=== PATIENT | female | born 1950 | race Caucasian/White ===

== ENCOUNTER 2016-08-22 07:39 | Emergency (ER) | payer OTHER ==
[~2016-08-22] VITALS: Ht 157.5 cm; Wt 71.5 kg
[2016-08-22 07:42] VITALS: Ht 157.5 cm; Wt 71.5 kg
--- NOTE | 2016-08-22 08:30 | ERD ---
ER Documentation Chief Complaint Date/Time DATE: 08/22/16 TIME: 08:21 Chief Complaint needs liainopril, metformin & hctz refil, bs 200 @ home HPI 66-year-old female presented ED complaining of "blood sugars too high". Patient has history of diabetes, hypertension, and hyper lipidemia. She is currently taking Metformin 850 mg twice daily, lisinopril, hydrochlorothiazide, and atorvastatin. The medication is prescribed to her by her PCP. Patient stated that her blood sugar this morning at home was 200. She is concerned about a number is being too high. Denies abdominal pain, nausea, vomiting. Denies polyuria, polydipsia or polyphagia. Denies headache or chest pain. Denies shortness of breath. ROS All systems reviewed and are negative except as per history of present illness. Allergies Allergies: Coded Allergies: codeine (Verified Allergy, Unknown, 03/14/14) PMhx/Soc Hx Miscellaneous Medical Probl: Yes (DM) Hx Alcohol Use: No Hx Substance Use: No Hx Tobacco Use: No Smoking Status: Never smoker Physical Exam Vitals Vital Signs Date Time Temp Pulse Resp B/P Pulse Ox O2 Delivery O2 Flow Rate FiO2 08/22/16 07:42 97.9 60 20 147/70 100 Physical Exam General: Well-developed, well-nourished, conscious and coherent, in no distress Skin: Warm and dry without rash, good texture and turgor Head: Normocephalic without evidence of trauma Eyes: Sclera and conjunctivae normal; pupils equal, round, and reactive to light; extraocular movements are intact Neck: Supple without meningismus or adenopathy. Carotids are equal. Trachea midline. No bruits or JVD Chest: Normal AP diameter. Good expansion without retractions. Nontender. Lungs are clear to auscultate bilaterally with good tidal volume Heart: Regular rate and rhythm. No murmur, rub, or gallops heard Abdomen: Soft and nontender without masses, guarding, or rebound. Bowel sounds are active. No hepatosplenomegaly Extremities: Full range of motion. Good strength bilaterally. No clubbing, cyanosis, or edema. Peripheral pulses are intact. Sensation intact Neuro: Alert and oriented 4, GCS 15. Cranial nerves grossly intact. Motor and sensory exams nonfocal. Moves all extremities. Speech clear. Gait normal Results 24 hrs Laboratory Tests Test 08/22/16 07:49 Bedside Glucose 221mg/dL Procedures/MDM Well-appearing 66-year-old female with history of hypertension diabetes and hyperlipidemia presented to ED with elevated blood glucose. Accu-Chek in the ED show her blood glucose at 221. Patient asymptomatic, I doubt she has DKA or HHS. I advised patient that while her blood glucose level is higher than the ideal range, it is not an emergency. She will need to follow-up by her PCP for medication adjustment to better control her diabetes. She still has all her medications, no refills needed. Patient appears well, stable for discharge and outpatient management. Medical decision making shared with patient and family. Education provided to patient and family. Patient and family expressed understanding of the plan. Medications on discharge: None. Follow-up: Primary care provider in 2-3 days or return to ED if worse. Departure Diagnosis: Primary Impression: Hyperglycemia due to type 2 diabetes mellitus Diabetes mellitus termite control service representative insulin use: without termite control service representative use Qualified Code : E11.65 - Type 2 diabetes mellitus with hyperglycemia, without long-term current use of insulin Condition: Good Patient Instructions: What Is Type 2 Diabetes?, Diabetes: Activity Tips, Diabetes: Understanding Carbohydrates, Fats, and Protein, Taking Medication for Diabetes Additional Instructions: Llame al doctor MAANA y omayra alexys RASHAWN PARA DENTRO DE 2-3 MORALES.Dgale a la secretaria que nosotros le instruimos hacer esta rashawn.Avise o llame si singh condicin se empeora antes de la rashawn. Regresa aqui si peor o no mejor. SISSY AMARO NP Aug 22, 2016 08:29
== END 2016-08-22 08:21 | disposition home or self-care (01) ==
LOC: FTE 07:39
DX: E11.65 Type 2 diabetes mellitus with hyperglycemia (principal); I10 Essential (primary) hypertension
CPT/HCPCS: 82962; 99281

== ENCOUNTER 2016-10-30 08:40 | Emergency (ER) | payer OTHER ==
[~2016-10-30] VITALS: Ht 165.1 cm; Wt 72.5 kg
[2016-10-30 08:43] VITALS: Ht 165.1 cm; Wt 72.5 kg
--- NOTE | 2016-10-30 09:33 | ERD ---
ER Documentation Chief Complaint Date/Time DATE: 10/30/16 TIME: 09:30 Chief Complaint PAIN WITH URINATION X3 DAYS HPI 66-year-old female presents with 1 day history of suprapubic pressure-like pain , urinary frequency and urgency. Pain is localized to the suprapubic region, she states that there is some pain when she urinates but is not able to describe the type of pain. Patient denies hematuria, flank pain. Patient denies fevers or chills, nausea or vomiting. ROS All systems reviewed and are negative except as per history of present illness. Medications Home Meds Active Scripts Nitrofurantoin Monohyd Macrocr* (Macrobid*) 100 Mg Capsr, 100 MG PO BID for 7 Days, CAP Prov:LALA SHIELDS PA-C 10/30/16 Allergies Allergies: Coded Allergies: codeine (Verified Allergy, Unknown, 03/14/14) PMhx/Soc Hx Miscellaneous Medical Probl: Yes (DM) Hx Alcohol Use: No Hx Substance Use: No Hx Tobacco Use: No Physical Exam Vitals Vital Signs Date Time Temp Pulse Resp B/P Pulse Ox O2 Delivery O2 Flow Rate FiO2 10/30/16 08:43 98.3 59 18 137/65 99 Physical Exam General: Well-developed, well-nourished. The patient appears in no acute distress. HEENT: Head is normocephalic, atraumatic. No scleral icterus Neck: Supple. Nontender. Lungs: Clear to auscultation. Normal air movement. Heart: Regular rate and rhythm. S1 and S2 are normal. No murmurs, gallops, or rubs. Abdomen: Soft, mild suprapubic pain with palpation, nondistended. Bowel sounds are normoactive. No tenderness to McBurney's, negative Gilman sign Extremities: No clubbing or cyanosis. Normal pulses. Moving extremities x 4. No weakness. Neurologic: Alert and oriented 3. No focal deficits. Skin: Normal turgor. No rash or lesions. Results 24 hrs Laboratory Tests Test 10/30/16 09:23 Urine Color LIONEL Urine Clarity CLOUDY Urine pH 5.0 Urine Specific [place] 1.021 Urine Ketones NEGATIVEmg/dL Urine Nitrite POSITIVEmg/dL Urine Bilirubin NEGATIVEmg/dL Urine Urobilinogen 1+mg/dL Urine Leukocyte Esterase 2+Des/ul Urine Microscopic RBC > 182/HPF Urine Microscopic WBC > 182/HPF Urine Bacteria FEW/HPF Urine Mucus FEW/HPF Urine Hemoglobin 2+mg/dL Urine Glucose NEGATIVEmg/dL Urine Total Protein 2+mg/dl Current Medications Medications (Trade) Dose Ordered Sig/Angel Route PRN Reason Start Time Stop Time Status Last Admin Dose Admin Nitrofurantoin Macrocrystals (Macrobid) 100 mg ONCE ONCE PO 10/30/16 10:30 10/30/16 10:31 Procedures/MDM MDM: 66-year-old female presents with painful urination, suprapubic pressure- like pain 1 day, consistent with lower urinary tract infection. Patient has evidence of urinary tract infection with multiple white blood cells and was given her first dose of Macrobid in emergency department. Well-appearing, nontoxic without any systemic signs of infection. There are no signs of acute surgical abdominal process, her abdomen is soft without any guarding. She also has not had any fever vomiting. Patient is stable and appropriate for outpatient management. Patient's blood pressure was elevated (>120/80) but appears stable without evidence of hypertension emergency or urgency. The patient was counseled about the risks of hypertension and urged to pursue outpatient monitoring and therapy within a week with their primary care physician. Departure Diagnosis: Primary Impression: UTI (urinary tract infection) Condition: LALA Romero PA-C Oct 30, 2016 09:33
[2016-10-30 10:01] LABS: ADD UMIC YES; UR ASCORBIC ACID NEGATIVE (NEGATIVE); UR BACTERIA FEW /HPF (NONE SEEN); UR BILIRUBIN (Dip) NEGATIVE (NEGATIVE); UR BLOOD (Dip) 2+ mg/dL (NEGATIVE); UR CLARITY CLOUDY (CLEAR); UR COLOR AMBER (YELLOW); UR GLUCOSE (Dip) NEGATIVE (NEGATIVE); UR KETONES (Dip) NEGATIVE (NEGATIVE); UR LEUKOCYTE ESTERASE (Dip) 2+ Leu/ul (NEGATIVE); UR MUCUS FEW /HPF (NONE SEEN); UR NITRITE (Dip) POSITIVE (NEGATIVE); UR NONSQUAMOUS EPITHELIAL CELL 1 /HPF (NONE SEEN); UR RBC > 182 /HPF (0-5); UR SPECIFIC GRAVITY (Dip) 1.021 (1.003-1.030); UR TOTAL PROTEIN (Dip) 2+ mg/dl (NEGATIVE); UR UROBILINOGEN (Dip) 1+ mg/dL (NEGATIVE)
[2016-10-30] MEDS ORDERED: NITR-58 PO (10:03)
[2016-10-30] MEDS ORDERED: NITROFURANTOIN (SR) 100 MG CAP PO ONE (10:30)
== END 2016-10-30 10:49 | disposition home or self-care (01) ==
LOC: FTE 08:40
DX: N39.0 Urinary tract infection, site not specified (principal); E11.9 Type 2 diabetes mellitus without complications
CPT/HCPCS: 81001; 99283